=== PATIENT | male | born 1970 | race Caucasian/White ===

== ENCOUNTER 2022-05-31 10:20 | Outpatient (CLI) | payer OTHER | END 2022-05-31 10:21 | disposition home or self-care (01) | LOC: TBSI PT 10:20 | PROVIDERS: ATTEND Physician Assistant Surgical | DX: M47.26 Other spondylosis with radiculopathy, lumbar region (principal) | CPT/HCPCS: 72110 ==

== ENCOUNTER 2022-07-03 13:16 | Outpatient (CLI) | payer OTHER ==
[2022-07-03 15:04] LABS: Hemoglobin 13.5 g/dL (13.5-17.5); Mean Corpuscular Hemoglobin 33.2 pg (27.0-33.0); Mean Corpuscular Volume 97.5 fl (81.2-95.1); Mean Platelet Volume 11.1 fl (7.4-10.4); Platelet Count 227 10x3/uL (150-450); RBC Distribution Width 11.9 % (11.5-14.5); Red Blood Cell (RBC) Count 4.07 10x6/uL (4.32-5.72); White Blood Cell (WBC) Count 6.3 10x3/uL (3.5-10.5)
[2022-07-03 15:23] LABS: PTT 26.6 sec (22.0-33.0); Prothrombin Time 10.4 sec (9.5-12.1)
== END 2022-07-03 13:17 | disposition home or self-care (01) ==
LOC: LABBT 13:16
PROVIDERS: ATTEND Neurological Surgery
DX: Z01.812 Encounter for preprocedural laboratory examination (principal); M51.26 Other intervertebral disc displacement, lumbar region; Z20.822 Contact with and (suspected) exposure to COVID-19
CPT/HCPCS: 85027; 85610; 85730; 87811; 93005; 93010

== ENCOUNTER 2022-07-06 05:43 | Day surgery (SDC) | payer OTHER ==
[2022-07-05 09:30] VITALS: BMI 35.6
[2022-07-06] MEDS ORDERED: Neomycin-Polymyxin 1 ML AMP ONE (06:10)
[2022-07-06] MEDS ORDERED: Thrombin 5000 UNITS/5 ML VIAL ONE (06:10)
[2022-07-06] MEDS ORDERED: Bupivacaine HCl 0.5%/Epinephrine 1:200,000/PF 30 ml Vial ONE (06:10)
[2022-07-06] MEDS ORDERED: Midazolam HCl 2 mg/2 ml Vial ONE (06:30)
[2022-07-06] MEDS ORDERED: fentaNYL Citrate/PF 100 MCG/2 ML SYRINGE ONE (06:30)
[2022-07-06] MEDS ORDERED: Sodium Chloride 0.9% 100 ML ONE ×2 (06:47→11:41)
[2022-07-06] MEDS ORDERED: CEFAZOLIN 2 GM VIAL ONE ×2 (06:47→11:41)
[2022-07-06] MEDS ORDERED: NEOSTIGMINE 3 MG/3 ML SYR 3 MG/3 ML SYRINGE ONE (07:00)
[2022-07-06] MEDS ORDERED: Dexamethasone 20 MG/5 ML VIAL ONE (07:00)
[2022-07-06] MEDS ORDERED: Ondansetron PF 4 MG/2 ML Vial ONE (07:00)
[2022-07-06] MEDS ORDERED: ePHEDrine 50 MG/ML VIAL ONE (07:00)
[2022-07-06] MEDS ORDERED: PROPOFOL 200 MG/20 ML VIAL ONE (07:00)
[2022-07-06] MEDS ORDERED: Glycopyrrolate 0.2 MG/ML 5 ML SYRINGE ONE (07:00)
[2022-07-06] MEDS ORDERED: Ketorolac Tromethamine 30 MG/ML VIAL ONE (07:00)
[2022-07-06] MEDS ORDERED: Rocuronium Bromide 10 MG/ML (10ML VIAL) ONE (07:00)
[2022-07-06] MEDS ORDERED: Acetaminophen/Codeine 30-300mg Tablet PO PRN ×2 (09:06)
[2022-07-06] MEDS ORDERED: Ondansetron PF 4 MG/2 ML Vial IVP PRN (09:06)
[2022-07-06] MEDS ORDERED: Promethazine HCl 25 MG/ML VIAL IM PRN (09:06)
[2022-07-06] MEDS ORDERED: Morphine 2 MG/ML VIAL SLOW IVP PRN (09:06)
[2022-07-06] MEDS ORDERED: diphenhydrAMINE 25 MG CAP PO PRN (09:06)
[2022-07-06] MEDS ORDERED: Promethazine HCl 12.5 MG SUPP PR PRN (09:06)
[2022-07-06] MEDS ORDERED: Acetaminophen 650 MG Suppository PR PRN (09:06)
[2022-07-06] MEDS ORDERED: Promethazine 25 MG TAB PO PRN (09:06)
[2022-07-06] MEDS ORDERED: Acetaminophen 325 MG TAB PO PRN (09:06)
[2022-07-06] MEDS ORDERED: Fentanyl 100 MCG/2 ML VIAL ONE ×2 (09:07→09:34)
[2022-07-06] MEDS ORDERED: Sodium Chloride 0.9% 1,000 ML IV SCH (09:15)
[2022-07-06] MEDS ORDERED: Morphine 2 MG/ML VIAL ONE (10:30)
[2022-07-06] MEDS ORDERED: Tamsulosin HCl 0.4 MG CAP ONE (10:46)
[2022-07-06] MEDS ORDERED: Cyclobenzaprine 10 MG TAB ONE (11:05)
[2022-07-06] MEDS ORDERED: HYDROcodone/Acetaminophen 5/325 mg Tablet ONE (11:46)
[2022-07-06] MEDS ORDERED: CEFAZOLIN 2 GM in Sodium Chloride 0.9% 100 ML IVPB SCH (14:00)
[2022-07-07] MEDS ORDERED: Tamsulosin HCl 0.4 MG CAP PO SCH (06:00)
== END 2022-07-06 12:50 | disposition home or self-care (01) ==
LOC: SDC 05:43
PROVIDERS: ATTEND Neurological Surgery
PROC: 0ST20ZZ Resection of Lumbar Vertebral Disc, Open Approach (ICD-10-PCS; principal; 2022-07-06)
DX: M51.16 Intervertebral disc disorders with radiculopathy, lumbar region (principal); M70.61 Trochanteric bursitis, right hip; I10 Essential (primary) hypertension; G47.30 Sleep apnea, unspecified; G40.909 Epilepsy, unspecified, not intractable, without status epilepticus; J45.909 Unspecified asthma, uncomplicated; E78.00 Pure hypercholesterolemia, unspecified; E66.9 Obesity, unspecified; Z68.35 Body mass index [BMI] 35.0-35.9, adult; Z79.899 Other long term (current) drug therapy; Z88.6 Allergy status to analgesic agent; Z86.16 Personal history of COVID-19
CPT/HCPCS: 76000; J0690; J2250; J2270; J3010; J3370; J3490